=== PATIENT | female | born 1975 | race African-American/Black ===

== ENCOUNTER 2020-07-13 04:27 | Inpatient (IN) | payer OTHER ==
[2020-07-09 18:10] VITALS: BMI 25.6
[2020-07-13] MEDS ORDERED: MIDAZOLAM HCL 2 MG/2 ML SINGLE DOSE VIAL ONE ×2 (08:43)
[2020-07-13] MEDS ORDERED: fentaNYL CITRATE 250 MCG/5 ML VIAL ONE (08:55)
[2020-07-13] MEDS ORDERED: PROPOFOL 20 ML ONE ×2 (08:56→10:31)
[2020-07-13] MEDS ORDERED: ROCURONIUM BROMIDE 100 MG/10 ML VIAL ONE (08:57)
[2020-07-13] MEDS ORDERED: SUCCINYLCHOLINE CHLORIDE 200 MG/10 ML SYRINGE ONE (09:30)
[2020-07-13] MEDS ORDERED: ceFAZolin SODIUM 1 GM VIAL IVPB ONE (09:40)
[2020-07-13] MEDS ORDERED: VASOPRESSIN 20 UNITS/ML VIAL IV ONE (09:40)
[2020-07-13] MEDS ORDERED: ONDANSETRON 4 MG/2 ML VIAL IVPUSH PRN ×2 (10:09→12:37)
[2020-07-13] MEDS ORDERED: oxyCODONE HCL 5 MG TABLET PO PRN ×4 (10:10→12:40)
[2020-07-13] MEDS ORDERED: LACTATED RINGERS SOLUTION 1,000 ML IV SCH (10:15)
[2020-07-13] MEDS ORDERED: ceFAZolin SODIUM 1 GM VIAL ONE (10:31)
[2020-07-13] MEDS ORDERED: DEXAMETHASONE SOD PHOSPHATE 4 MG/1 ML VIAL ONE (10:31)
[2020-07-13] MEDS ORDERED: KETOROLAC TROMETHAMINE 30 MG/1 ML VIAL ONE (10:31)
[2020-07-13] MEDS ORDERED: LIDOCAINE HCL/PF 2% SDV 5ML VIAL ONE (10:31)
[2020-07-13] MEDS ORDERED: ROCURONIUM BROMIDE 50 MG/5 ML SYRINGE ONE (10:31)
[2020-07-13] MEDS ORDERED: NEOSTIGMINE METHYLSULFATE 0.5 MG/ML - 10 ML MDV ONE (10:47)
[2020-07-13] MEDS ORDERED: GLYCOPYRROLATE 0.2 MG/1 ML VIAL ONE (10:47)
[2020-07-13] MEDS ORDERED: DESFLURANE GAS 240 ML BOTTLE IH ONE (11:48)
[2020-07-13] MEDS ORDERED: HYDROmorphone HCl 2 MG/ML VIAL ONE (12:00)
[2020-07-13] MEDS ORDERED: BENZOIN/ALOE VERA/STORAX/TOLU 58 ML BOTTLE ONE (12:15)
[2020-07-13 14:13] LABS: HEMATOCRIT 30.9 % (32.4-45.2); HEMOGLOBIN 9.7 GM/dL (10.7-15.3); MCH 24.3 pg (25.7-33.7); MCHC 31.4 g/dl (32.0-36.0); MEAN CELL VOLUME 77.5 fl (80-96); MEAN PLT VOLUME 9.3 fl (7.5-11.1); PLATELET COUNT 232 K/MM3 (134-434); RBC 3.99 M/mm3 (3.60-5.2); RDW 14.3 % (11.6-15.6)
[2020-07-13] MEDS: ACETAMINOPHEN 325 MG TABLET (FP) PO SCH (15:56)
[2020-07-13] MEDS: ELECTROLYTE-148 SOLN 1,000 ML IV SCH (17:00)
[2020-07-13] MEDS: ceFAZolin 2 GRAM PREMIX BAG IVPB SCH (18:00)
[2020-07-13] MEDS ORDERED: BISACODYL 5 MG TABLET.DR (FP) PO PRN (18:35)
[2020-07-13] MEDS: IBUPROFEN 800 MG/8 ML IJ IVPB PRN (18:36)
[2020-07-13] MEDS: oxyCODONE HCL 10 MG SUSTAINED ACTING TABLET PO SCH (23:15)
[2020-07-14] MEDS: ACETAMINOPHEN 325 MG TABLET (FP) PO PRN ×2 (01:06→18:33)
[2020-07-14] MEDS: IBUPROFEN 800 MG/8 ML IJ IVPB PRN (01:07)
[2020-07-14] MEDS: ceFAZolin 2 GRAM PREMIX BAG IVPB SCH ×3 (03:04→17:23)
[2020-07-14 08:32] LABS: BASO % 0.2 % (0-2.0); HEMATOCRIT 30.1 % (32.4-45.2); HEMOGLOBIN 9.8 GM/dL (10.7-15.3); LYMPH % 11.9 % (8-40); MCH 25.2 pg (25.7-33.7); MCHC 32.6 g/dl (32.0-36.0); MEAN CELL VOLUME 77.4 fl (80-96); MEAN PLT VOLUME 8.8 fl (7.5-11.1); MONO % 9.5 % (3.8-10.2); NEUT % 78.4 % (42.8-82.8); PLATELET COUNT 178 K/MM3 (134-434); RBC 3.88 M/mm3 (3.60-5.2); RDW 14.5 % (11.6-15.6); WHITE BLOOD COUNT 14.6 K/mm3 (4.0-10.0)
[2020-07-14 08:50] LABS: CALCIUM 8.8 mg/dL (8.5-10.1)
[2020-07-14 08:51] LABS: BLOOD UREA NITROGEN 6.3 mg/dL (7-18)
[2020-07-14 08:54] LABS: CREATININE 0.6 mg/dL (0.55-1.3)
[2020-07-14] MEDS: ENOXAPARIN NA (PORCINE) 40 MG/0.4 ML DISP.SYRIN SQ SCH (09:38)
[2020-07-14] MEDS: oxyCODONE HCL 10 MG SUSTAINED ACTING TABLET PO SCH ×2 (09:38→21:57)
[2020-07-14] MEDS: IBUPROFEN 600 MG TABLET (FP) PO PRN (12:32)
[2020-07-14] MEDS: ELECTROLYTE-148 SOLN 1,000 ML IV SCH (12:33)
[2020-07-14] MEDS: SIMETHICONE 80 MG TAB.CHEW (FP) PO PRN (21:57)
[2020-07-15] MEDS: ceFAZolin 2 GRAM PREMIX BAG IVPB SCH ×3 (02:16→17:19)
[2020-07-15] MEDS: ACETAMINOPHEN 325 MG TABLET (FP) PO PRN ×2 (02:25→18:09)
[2020-07-15] MEDS: SIMETHICONE 80 MG TAB.CHEW (FP) PO PRN (02:25)
[2020-07-15] MEDS: IBUPROFEN 600 MG TABLET (FP) PO PRN (02:26)
[2020-07-15] MEDS: ENOXAPARIN NA (PORCINE) 40 MG/0.4 ML DISP.SYRIN SQ SCH (10:00)
[2020-07-15] MEDS: oxyCODONE HCL 10 MG SUSTAINED ACTING TABLET PO SCH ×2 (10:00→22:11)
[2020-07-15 10:41] LABS: BASO % 0.3 % (0-2.0); EOS % 0.1 % (0-4.5); HEMATOCRIT 28.2 % (32.4-45.2); HEMOGLOBIN 9.2 GM/dL (10.7-15.3); LYMPH % 11.9 % (8-40); MCH 25.3 pg (25.7-33.7); MCHC 32.6 g/dl (32.0-36.0); MEAN CELL VOLUME 77.6 fl (80-96); MEAN PLT VOLUME 8.5 fl (7.5-11.1); MONO % 8.4 % (3.8-10.2); NEUT % 79.3 % (42.8-82.8); PLATELET COUNT 184 K/MM3 (134-434); RBC 3.63 M/mm3 (3.60-5.2); RDW 14.6 % (11.6-15.6); WHITE BLOOD COUNT 14.5 K/mm3 (4.0-10.0)
[2020-07-16] MEDS: ceFAZolin 2 GRAM PREMIX BAG IVPB SCH ×2 (01:22→10:35)
[2020-07-16] MEDS: oxyCODONE HCL 10 MG SUSTAINED ACTING TABLET PO SCH (10:34)
[2020-07-16] MEDS: ENOXAPARIN NA (PORCINE) 40 MG/0.4 ML DISP.SYRIN SQ SCH (10:34)
[2020-07-16 13:13] VITALS: BP 126/61; PULSE 85; TEMP 99.6
== END 2020-07-16 14:30 | disposition home or self-care (01) | DRG 743 ==
LOC: J2C 04:27 → J3W 15:43
PROVIDERS: ADMIT Obstetrics & Gynecology; ATTEND Obstetrics & Gynecology
PROC: 0UB90ZZ Excision of Uterus, Open Approach (ICD-10-PCS; principal; 2020-07-13 09:00)
DX: D25.1 Intramural leiomyoma of uterus (principal); D25.2 Subserosal leiomyoma of uterus; N92.1 Excessive and frequent menstruation with irregular cycle; R10.2 Pelvic and perineal pain
CPT/HCPCS: 36415; 80048; 81025; 85025; 85027; 86850; 86900; 86901; 86922; 94010; 94760; P9058

== ENCOUNTER → 2021-12-15 | Day surgery (SDC) | payer OTHER | END | disposition home or self-care (01) | LOC: JRADIR 09:10 | PROVIDERS: ATTEND Internal Medicine Endocrinology, Diabetes & Metabolism | PROC: 0G9G3ZX Drainage of Left Thyroid Gland Lobe, Percutaneous Approach, Diagnostic (ICD-10-PCS; principal; 2021-12-15) | DX: E04.1 Nontoxic single thyroid nodule (principal) | CPT/HCPCS: 10005; 76942; 88173; 88305-TC ==

== ENCOUNTER → 2021-12-23 | Day surgery (SDC) | payer OTHER | END | disposition home or self-care (01) | LOC: JRADIR 09:13 | PROVIDERS: ATTEND Internal Medicine Endocrinology, Diabetes & Metabolism | PROC: 0G9H3ZX Drainage of Right Thyroid Gland Lobe, Percutaneous Approach, Diagnostic (ICD-10-PCS; principal; 2021-12-23) | DX: E04.1 Nontoxic single thyroid nodule (principal) | CPT/HCPCS: 10005; 76942; 88173; 88305-TC ==

== ENCOUNTER → 2022-11-22 | Day surgery (SDC) | payer OTHER | END | disposition home or self-care (01) | LOC: JRADIR 10:20 | PROVIDERS: ATTEND Internal Medicine Endocrinology, Diabetes & Metabolism | PROC: 0G9K3ZX Drainage of Thyroid Gland, Percutaneous Approach, Diagnostic (ICD-10-PCS; principal; 2022-11-22) | DX: E04.1 Nontoxic single thyroid nodule (principal) | CPT/HCPCS: 10005; 76942; 88173; 88305-TC ==